=== PATIENT | male | born 1955 | race African-American/Black ===

== ENCOUNTER 2022-08-27 12:21 | Emergency (ER) | payer OTHER ==
[~2022-08-27] VITALS: Ht 170.2 cm; Wt 72.7 kg
[2022-08-27 13:23] LABS: Basophils # (auto) 0 10 ^3/uL (0-0.2); Eosinophils # (auto) 0.1 10 ^3/uL (0-0.8); Hemoglobin 12.5 g/dL (13.5-17.5); Neutrophils % (auto) 63.6 % (37.0-80.0); Nucleated Red Blood Cells % 0.6 %
[2022-08-27 13:25] LABS: Basophils % (auto) 0.5 % (0.0-2.0); Eosinophils % (auto) 1.6 % (0.0-7.0); Hematocrit 37.9 % (41.0-53.0); Lymphocytes # (auto) 1.7 10 ^3/uL (0.4-5.4); Lymphocytes % (auto) 28.8 % (10.0-50.0); Mean Corpuscular Hemoglobin 25.9 pg (28.0-32.0); Mean Corpuscular Volume 78.5 fL (80.0-100.0); Monocytes # (auto) 0.3 10 ^3/uL (0-1.3); Monocytes % (auto) 5.5 % (0.0-12.0); Neutrophils # (auto) 3.7 10 ^3/uL (1.6-8.6); Red Blood Cells 4.83 10^6/uL (4.5-5.90); Red Cell Distribution Width 14.8 % (11.8-14.3); White Blood Cell 5.8 10^3/uL (4.4-10.8)
[2022-08-27 13:39] LABS: INR 0.97 (0.9-1.15); Partial Thromboplastin Time 27.4 sec (24.6-33.4)
[2022-08-27 13:44] LABS: Albumin 3.9 g/dL (3.4-5.0); Magnesium 2.4 mg/dL (1.6-2.6); Potassium 4.5 mmol/L (3.5-5.1)
[2022-08-27 13:48] LABS: BUN/Creatinine Ratio 10.2 (10.0-20.0); Bilirubin, Total 0.5 mg/dL (0.2-1.0); Total Protein 7.8 g/dL (6.4-8.2)
[2022-08-27] MEDS ORDERED: MECLIZINE HCL 25 MG TAB PO ONE (15:15)
[2022-08-27] MEDS ORDERED: MECL12.514 PO (15:32)
[2022-08-27] MEDS ORDERED: SODIUM CHLORIDE 0.9% 1,000 ML IV ONE (15:45)
[2022-08-27] MEDS ORDERED: cloNIDine HCL 0.1 MG TAB PO ONE (16:00)
[2022-08-27 17:07] VITALS: BP 193/106
[2022-08-27] MEDS ORDERED: LOSA100T25 PO (17:55)
== END 2022-08-27 17:16 | disposition home or self-care (01) ==
LOC: ER 12:21
DX: R42 Dizziness and giddiness (principal); E11.65 Type 2 diabetes mellitus with hyperglycemia; E78.5 Hyperlipidemia, unspecified; I10 Essential (primary) hypertension; R06.02 Shortness of breath; Z79.899 Other long term (current) drug therapy; Z79.01 Long term (current) use of anticoagulants
CPT/HCPCS: 36415; 70450; 71045; 80053; 82962; 83735; 83880; 84484; 85025; 85610; 85730; 93005; 99284; J8597